=== PATIENT | female | born 1955 | race Caucasian/White ===

== ENCOUNTER 2017-06-29 19:14 | Emergency (ER) | payer OTHER ==
[~2017-06-29 19:14] MED LIST: ALPR-461 PO; ASPI81TA94 PO; CEF300 PO; CHOL10005 PO; CITA-128 PO; CITA-141 PO; CITA-156 PO; CLON-298 PO; CLON-303 *; CYCL10TA29 PO; DIA5 PO; GAB100 PO; GAB300 PO; LOR5 PO; LOR5/325 PO; METO-253 PO; MOMR ENA; MULT-893 PO; NAPR220C12 PO; OMEP-137 PO; ONDA4TAB PO; OXYC-1 PO; PER PO; SIME80TA65 PO; SIMV-49 PO
--- NOTE | 2017-06-29 19:24 | ER Report ---
History and Physical Time Seen By MD: 19:24 Hx. of Stated Complaint: FEELS DEHYDRATED. DIARRHEA ALL DAY, SOME BLEEDING NOTED. HOT FLASHES HPI/ROS CHIEF COMPLAINT: Vomiting and diarrhea HISTORY OF PRESENT ILLNESS: This is a 61-year-old female who presents to the emergency department for nausea, vomiting and diarrhea. Patient states that she felt somewhat ill this morning and then throughout the course of today she's had persistent vomiting and diarrhea. She states that she's had some much diarrhea that it irritated her hemorrhoids she does have some bright red blood noted on the toilet paper no coffee grounds emesis or dark stools. Patient also states that she does have some overall ill feelings. She denies fevers, chills, headaches, chest pain or shortness of breath. The solution that she felt just fine yesterday. REVIEW OF SYSTEMS: Respiratory: No cough, no dyspnea. Cardiovascular: No chest pain, no palpitations. Gastrointestinal: As above. Musculoskeletal: No back pain. Allergies: Coded Allergies: amoxicillin (Verified Allergy, Mild, 06/29/17) shellfish derived (Verified Allergy, Unknown, AIRWAY OBSTRUCTION, 06/29/17) Home Meds Active Scripts Ondansetron (ZOFRAN ODT) 4 Mg Tab.rapdis, 4 MG PO Q6H Y for NAUSEA/VOMITING, # 20 TAB.DEREJE Prov:JEREMI PATE SALES SECRETARY- 06/29/17 Mometasone Furoate (NASONEX) 17 Gm [place], 17 GM MAL 1-2XD for 10 Days, SPRAY Prov:KATHY YU MD 08/21/16 Reported Medications Metoprolol Succinate (METOPROLOL SUCCINATE) 25 Mg Tab.er.24h, 1 TAB PO QDAY, TAB 06/29/17 Clonazepam (CLONAZEPAM) 0.5 Mg Tablet, 0.5 MG PO DAILY, #6 TAB 09/03/16 Naproxen Sodium (ALEVE) 220 Mg Capsule, 500 MG PO BID Y for PAIN, CAPSULE 06/26/16 Discontinued Reported Medications Multivitamin (MULTIVITAMINS) 1 Each Tab.chew, 1 EACH PO DAILY, TAB.CHEW 09/03/16 Citalopram Hydrobromide (CELEXA) 20 Mg Tablet, 20 MG PO QDAY, #5 TAB 09/03/16 Discontinued Scripts Simethicone (SIMETHICONE) 80 Mg Tab.chew, 80 MG PO QID for 10 Days, #40 TAB.CHEW 0 Refills Prov:TIERA BURGOS MD 08/28/16 Past Medical/Surgical History Patient has a past medical and surgical history of hypertension, acid reflux, gallbladder disease, cholecystectomy, ankle fracture, toe fracture, chronic neck pain, wears glasses, uses marijuana, has depression and anxiety, kidney surgery, tubal ligation, tonsillectomy. Reviewed Nurses Notes: Yes Hx Smoking: No Smoking Status: Never Smoker Exposure to Second Hand Smoke?: No Hx Substance Use Disorder: No Hx Alcohol Use: Yes Constitutional Vital Sign - Last 24 Hours 06/29/17 19:18 Temp 98.9 Pulse 69 Resp 16 B/P (MAP) 124/88 Pulse Ox 93 O2 Delivery Room Air Intake and Output 06/29/17 06/29/17 06/30/17 15:00 23:00 07:00 Intake Total 1000 ml Balance 1000 ml Physical Exam General Appearance: The patient is alert, has no immediate need for airway protection and no current signs of toxicity. Eyes: Pupils equal and round no injection. Respiratory: Chest is non tender, lungs are clear to auscultation. Cardiac: regular rate and rhythm. Gastrointestinal: Abdomen is soft and non tender, no masses, hyperactive bowel sounds in all quadrants. Musculoskeletal: Neck: Neck is supple and non tender. Extremities have full range of motion and are non tender. Skin: No rashes or lesions. DIFFERENTIAL DIAGNOSIS: After history and physical exam differential diagnosis was considered for nausea and vomiting including but not limited to gastroenteritis, gastritis, appendicitis, and medication side effect. Medical Decision Making Data Points Result Diagram: 06/29/17199906/29/171999 Laboratory Hematology Test 06/29/17 20:00 Red Blood Count 5.26 M/uL (4.17-5.56) Mean Corpuscular Volume 92.7 fL (80.0-96.0) Mean Corpuscular Hemoglobin 32.0 pg (26.0-33.0) Mean Corpuscular Hemoglobin Concent 34.5 g/dL (32.0-36.0) Red Cell Distribution Width 13.2 % (11.5-14.5) Mean Platelet Volume 8.9 fL (7.2-11.1) Neutrophils (%) (Auto) 66.1 % (39.4-72.5) Lymphocytes (%) (Auto) 25.0 % (17.6-49.6) Monocytes (%) (Auto) 7.6 % (4.1-12.4) Eosinophils (%) (Auto) 0.2 % (0.4-6.7) Basophils (%) (Auto) 1.1 % (0.3-1.4) Nucleated RBC Relative Count (auto) 0.0 /100WBC Neutrophils # (Auto) 6.9 K/uL (2.0-7.4) Lymphocytes # (Auto) 2.6 K/uL (1.3-3.6) Monocytes # (Auto) 0.8 K/uL (0.3-1.0) Eosinophils # (Auto) 0.0 K/uL (0.0-0.5) Basophils # (Auto) 0.1 K/uL (0.0-0.1) Nucleated RBC Absolute Count (auto) 0.00 K/uL Sodium Level 138 mmol/L (137-145) Potassium Level 3.4 mmol/L (3.5-5.0) Chloride Level 103 mmol/L (98-107) Carbon Dioxide Level 20 mmol/L (22-31) Blood Urea Nitrogen 19 mg/dl (7-18) Creatinine 0.80 mg/dl (0.52-1.04) Glomerular Filtration Rate Calc > 60.0 Random Glucose 107 mg/dl (75-110) Calcium Level 9.3 mg/dl (8.4-10.2) Total Bilirubin 1.0 mg/dl (0.2-1.3) Aspartate Amino Transf (AST/SGOT) 30 U/L (0-35) Alanine Aminotransferase (ALT/SGPT) 32 U/L (0-56) Alkaline Phosphatase 102 U/L (0-126) Total Protein 7.8 gm/dl (6.3-8.2) Albumin 4.2 g/dl (3.5-5.0) Chemistry Test 06/29/17 20:00 White Blood Count 10.4 k/uL (4.5-11.0) Red Blood Count 5.26 M/uL (4.17-5.56) Hemoglobin 16.8 g/dL (12.0-16.0) Hematocrit 48.8 % (34.0-47.0) Mean Corpuscular Volume 92.7 fL (80.0-96.0) Mean Corpuscular Hemoglobin 32.0 pg (26.0-33.0) Mean Corpuscular Hemoglobin Concent 34.5 g/dL (32.0-36.0) Red Cell Distribution Width 13.2 % (11.5-14.5) Platelet Count 226 K/uL (150-450) Mean Platelet Volume 8.9 fL (7.2-11.1) Neutrophils (%) (Auto) 66.1 % (39.4-72.5) Lymphocytes (%) (Auto) 25.0 % (17.6-49.6) Monocytes (%) (Auto) 7.6 % (4.1-12.4) Eosinophils (%) (Auto) 0.2 % (0.4-6.7) Basophils (%) (Auto) 1.1 % (0.3-1.4) Nucleated RBC Relative Count (auto) 0.0 /100WBC Neutrophils # (Auto) 6.9 K/uL (2.0-7.4) Lymphocytes # (Auto) 2.6 K/uL (1.3-3.6) Monocytes # (Auto) 0.8 K/uL (0.3-1.0) Eosinophils # (Auto) 0.0 K/uL (0.0-0.5) Basophils # (Auto) 0.1 K/uL (0.0-0.1) Nucleated RBC Absolute Count (auto) 0.00 K/uL Glomerular Filtration Rate Calc > 60.0 Calcium Level 9.3 mg/dl (8.4-10.2) Total Bilirubin 1.0 mg/dl (0.2-1.3) Aspartate Amino Transf (AST/SGOT) 30 U/L (0-35) Alanine Aminotransferase (ALT/SGPT) 32 U/L (0-56) Alkaline Phosphatase 102 U/L (0-126) Total Protein 7.8 gm/dl (6.3-8.2) Albumin 4.2 g/dl (3.5-5.0) ED Course/Re-evaluation Clinical Indication for ER IV: Hydration, IV Access ED Course The patient was admitted to room. A history physical obtained. Differential diagnoses were considered. An IV was started. A CBC, CMP were obtained. A 1 L normal saline bolus was given. 4 mg IV Zofran. Laboratory studies unremarkable. I did review these results with the patient. Patient states she is still having a little bit of nausea however it is improved. I did tell her I would go ahead and give her another 4 mg of IV Zofran. Patient states that she is feeling better with the fluid bolus. The patient was given a take-home pack of Zofran, and a prescription for Zofran. Patient was instructed to follow-up with her primary care provider in 7-14 days for reevaluation. Patient was also instructed to return to the emergency department for any other concerns or worsening symptoms she may have. Patient was in agreement with this plan of care and discharged home. Decision to Disposition Date: Jun 29, 2017 Decision to Disposition Time: 21:27 Depart Departure Latest Vital Signs Vital Signs Date Time Temp Pulse Resp B/P (MAP) Pulse Ox O2 Delivery O2 Flow Rate FiO2 06/29/17 19:18 98.9 69 16 124/88 93 Room Air Impression: Primary Impression: Nausea, vomiting and diarrhea Condition: Improved Disposition: HOME OR SELF-CARE New Scripts Ondansetron (ZOFRAN ODT) 4 Mg Tab.rapdis 4 MG PO Q6H Y for NAUSEA/VOMITING, #20 TAB.DEREJE Prov: JEREMI PATE-BC 06/29/17 Patient Instructions: Acute Nausea and Vomiting (ED) Additional Instructions: Continue to drink plenty of fluids. Take your medications as prescribed. Take the Zofran as prescribed. Be sure to follow-up with your primary care provider in 7-14 days. Return to the emergency department for any other concerns or worsening symptoms. JEREMI PATEP-BC Jun 29, 2017 19:24
[2017-06-29] MEDS ORDERED: METO25TA23 PO (19:26)
[2017-06-29] MEDS ORDERED: ONDANSETRON 4 MG/2 ML VIAL IVP ONE ×2 (19:35→20:35)
[2017-06-29] MEDS ORDERED: NS(*) 0.9% 1000 ML BAG 1,000 ML IV ONE (19:35)
[2017-06-29 20:15] LABS: PLATELET COUNT, AUTOMATED 226 K/uL (150-450)
[2017-06-29] MEDS ORDERED: ONDA4TAB PO (20:36)
[2017-06-29] MEDS ORDERED: ONDANSETRON 4 MG ODT TH SL ONE (20:55)
[2017-06-29 21:00] VITALS: BP 115/68
== END 2017-06-29 21:31 | disposition home or self-care (01) ==
LOC: ER 19:43
DX: R11.2 Nausea with vomiting, unspecified (principal); R19.7 Diarrhea, unspecified
CPT/HCPCS: 85025; 96361; 96374; 96376; 99283; J2405; J7030; 82040; 82247; 82310; 82374; 82435; 82565; 82947; 84075; 84132; 84155; 84295; 84450; 84460; 84520

== ENCOUNTER 2017-10-09 02:33 | Emergency (ER) | payer OTHER ==
[~2017-10-09 02:33] MED LIST changes: -CLON-298 PO; +CLON-331 PO; +METO25TA23 PO
[2017-10-09 02:41] VITALS: BP 172/89
[2017-10-09] MEDS ORDERED: KETOROLAC 30 MG/ML VIAL IM ONE (02:50)
[2017-10-09] MEDS ORDERED: LEVO50TA86 PO (02:56)
[2017-10-09] MEDS ORDERED: TRAZ100T31 PO (02:56)
[2017-10-09] MEDS ORDERED: OXYB5TAB86 PO (02:56)
[2017-10-09] MEDS ORDERED: METO25TA93 PO (02:56)
[2017-10-09] MEDS ORDERED: DOCU-416 PO (02:56)
[2017-10-09] MEDS ORDERED: ROPI0.5T25 PO (02:56)
[2017-10-09] MEDS ORDERED: ATOR40TA24 PO (02:56)
--- NOTE | 2017-10-09 02:58 | ER Report ---
History and Physical Time Seen By MD: 02:57 Hx. of Stated Complaint: PATIENT HAS BEEN DEALING WITH RESTLESS LEG SYNDROME SINCE 2016, PATIENT TAKES REQUIP FOR IT, AND THEN TAKE TRAZEDONE TO HELP HER SLEEP BUT OVER THE LAST COUPLE DAYS, NOTHING HAS HELPED HER LEGS FEEL BETTER, PATIETN CAN'T SLEEP, HER LEGS HURT AND BURN. HPI/ROS CHIEF COMPLAINT: Restless legs HISTORY OF PRESENT ILLNESS: Patient is a 62-year-old female here with complaints of exacerbation of her restless leg syndrome with discomfort in bilateral lower extremity neuropathic pain which keeps her from sleeping in spite of being on ropinirole. Patient used to be on clonazepam in the past however reports being taken off of this medication. She also takes trazodone to sleep. Patient denies back pain, fevers, chills, abdominal pain, nausea, vomiting. Motor exam is intact at time of evaluation. Denies trauma. Patient is very tearful and frustrated about her condition. Pain is reportedly worse when laying down or sitting and is improved by standing and walking. REVIEW OF SYSTEMS: Constitutional: No fever, no chills. Eyes: No discharge. ENT: No sore throat. Cardiovascular: No chest pain, no palpitations. Respiratory: No cough, no shortness of breath. Gastrointestinal: No abdominal pain, no vomiting. Genitourinary: No hematuria. Musculoskeletal: No back pain, + lower extremity b/l pain Skin: No rashes. Neurological: No headache, no focal deficits Allergies: Coded Allergies: amoxicillin (Verified Allergy, Mild, 10/09/17) shellfish derived (Verified Allergy, Unknown, AIRWAY OBSTRUCTION, 10/09/17) Home Meds Active Scripts Clonazepam (CLONAZEPAM) 1 Mg Tablet, 1 MG PO QHS, #6 TAB Prov:ARNIE SNELL DO 10/09/17 Reported Medications Trazodone Hcl (TRAZODONE HCL) 100 Mg Tablet, 100 MG PO QHS, TAB 10/09/17 Docusate Sodium (COLACE) 100 Mg Capsule, 100 MG PO QDAY, CAPSULE 10/09/17 Oxybutynin Chloride (OXYBUTYNIN CHLORIDE) 5 Mg Tablet, 10 MG PO QDAY, TAB 10/09/17 Metoprolol Tartrate (METOPROLOL TARTRATE) 25 Mg Tablet, 2 TAB PO QDAY, TAB 7/25/18 Levothyroxine Sodium (LEVOTHYROXINE SODIUM) 50 Mcg Tablet, 50 MCG PO QDAY, TAB 10/09/17 Atorvastatin Calcium (LIPITOR) 40 Mg Tablet, 1 TAB PO QDAY, TAB 10/09/17 Ropinirole Hcl (ROPINIROLE HCL) 0.5 Mg Tablet, 0.5 MG PO TID 10/09/17 Discontinued Reported Medications Metoprolol Succinate (METOPROLOL SUCCINATE) 25 Mg Tab.er.24h, 1 TAB PO QDAY, TAB 06/29/17 Clonazepam (CLONAZEPAM) 0.5 Mg Tablet, 0.5 MG PO DAILY, #6 TAB 09/03/16 Naproxen Sodium (ALEVE) 220 Mg Capsule, 500 MG PO BID Y for PAIN, CAPSULE 06/26/16 Discontinued Scripts Ondansetron (ZOFRAN ODT) 4 Mg Tab.rapdis, 4 MG PO Q6H Y for NAUSEA/VOMITING, # 20 TAB.DEREJE Prov:JEREMI PATE CODING FILE CLERK-BC 06/29/17 Mometasone Furoate (NASONEX) 17 Gm [place], 17 GM MAL 1-2XD for 10 Days, SPRAY Prov:KATHY YU MD 08/21/16 Hx Smoking: No Smoking Status: Never Smoker Exposure to Second Hand Smoke?: No Hx Substance Use Disorder: Yes (Marijuana) Hx Alcohol Use: Yes Constitutional Vital Sign - Last 24 Hours 10/09/17 02:41 Temp 98.8 Pulse 75 Resp 24 B/P (MAP) 172/89 Pulse Ox 91 Physical Exam General Appearance: The patient is alert, has no immediate need for airway protection and no signs of toxicity. Moderate distress Eyes: Pupils equal and round no pallor or injection. ENT, Mouth: Mucous membranes are moist. Respiratory: There are no retractions, lungs are clear to auscultation. Cardiovascular: Regular rate and rhythm. Gastrointestinal: Abdomen is soft and non tender, no masses, bowel sounds normal. Neurological: No focal neurological deficits or weakness Skin: Warm and dry, no rashes. Musculoskeletal: Neck is supple non tender. Extremities are + tender b/l, nonswollen and have full range of motion. DIFFERENTIAL DIAGNOSIS: After history and physical exam differential diagnosis was considered for restless leg exacerbation, electrolyte abnormality, trauma, diabetic neuropathy Medical Decision Making ED Course/Re-evaluation ED Course Patient is a 62-year-old female here with complaints of discomfort and pain in her legs, difficulty sleeping in the setting of breath like syndrome on ropinirole. Patient is visibly frustrated and upset that she has been unable to sleep appropriately due to her pain. Patient was given a dose of Toradol and a prescription for several days of Klonopin for adjunctive therapy. Patient was stable at time of discharge. Decision to Disposition Date: Oct 09, 2017 Decision to Disposition Time: 03:09 Depart Departure Latest Vital Signs Vital Signs Date Time Temp Pulse Resp B/P (MAP) Pulse Ox O2 Delivery O2 Flow Rate FiO2 10/09/17 02:41 98.8 75 24 172/89 91 Impression: Primary Impression: Restless legs syndrome Condition: Improved Disposition: HOME OR SELF-CARE New Scripts Clonazepam (CLONAZEPAM) 1 Mg Tablet 1 MG PO QHS, #6 TAB Prov: ARNIE SNELL DO 10/09/17 Patient Instructions: Clonazepam (By mouth), Restless Legs Syndrome (ED) Additional Instructions: You may take 1 tablet of clonazepam as needed at bedtime for restless leg syndrome. Please do not take this medication while drinking alcohol. Do not drive or operate heavy machinery while taking this medication. Please follow-up with your family doctor to discuss alternative treatments. ARNIE SNELL DO Oct 09, 2017 02:58
[2017-10-09] MEDS ORDERED: CLON-304 PO (02:59)
[2017-10-09] MEDS ORDERED: clonazePAM 1 MG TAB PO ONE (03:00)
== END 2017-10-09 03:09 | disposition home or self-care (01) ==
LOC: ER 02:34
DX: G25.81 Restless legs syndrome (principal)
CPT/HCPCS: 96372; 99283; J1885